=== PATIENT | female | born 1985 | race Caucasian/White ===

== ENCOUNTER 2023-11-04 14:56 | Outpatient (AMB) | payer BC, SELFPAY ==
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
[2023-11-04 15:02] VITALS: BP 118/72; PULSE 88; O2SAT 99; BMI 26.3
== END 2023-11-04 16:27 | disposition home or self-care (01) ==
PROVIDERS: PCP Nurse Practitioner; Visit Provider Nurse Practitioner Family
DX: Z04.3 Encounter for examination and observation following other accident (principal); S06.309S Unspecified focal traumatic brain injury with loss of consciousness of unspecified duration, sequela; F07.81 Postconcussional syndrome; G44.309 Post-traumatic headache, unspecified, not intractable; H53.8 Other visual disturbances
CPT/HCPCS: 99204

== ENCOUNTER → 2023-11-04 14:56 | Outpatient (BNVA) | payer BC, SELFPAY | PROVIDERS: PCP Registered Nurse; Visit Provider Nurse Practitioner Family ==

== ENCOUNTER 2023-12-14 07:42 | Outpatient (AMB) | payer BC, SELFPAY ==
--- NOTE | 2023-12-14 07:46 | A.OFFVIS_ITS ---
Intake Vital Signs 12/14/23 07:47 Height 5 ft 4 in Weight 153 lb BMI 26.3 BP 120/82 Blood Pressure Location Rt brachial Position Sitting Pulse 89 Pulse Source Pulse Oximeter Pulse Oximetry (%) 97 Oxygen Delivery Method Room Air Intake Visit Reasons: 6 Weeks f/u -Aching Headache Intake Note: Patient presents for 6 weeks follow up aching headaches. My headaches are worst since I saw her i also feel very dizzy. Allergies No Known Allergies Allergy (Verified 12/14/23 07:52) Medication List - Last Reconciled 12/14/23 by BRISEYDA Jack magnesium oxide 400 mg PO BEDTIME 30 days riboflavin (vitamin B2) 400 mg PO DAILY 30 days sumatriptan succinate 50 - 100 mg orally at onset of headache, may repeat in 2 hrs PRN; max 2 tabs per day or 4 tabs/week (may take with Ibuprofen) 30 days HPI HPI Comments History of Present Illness Details 38-yr-old female presents for f/u visit. Pt denies any significant interval medical changes. She is having more headaches- has had 6 days of headache in the past 7 days. Has been waking up with headaches. Wonders if this is r/t her neck. She can have upper neck/lower occipital- tension/pressure. Using Tylenol 2 tabs 2-3 x's per week- helps some. Did not receive Mag, B2, or Sumatriptan. She can still feel very dizzy. Still having difficulty w/ memory, word finding difficulties, losing her train of thought, and STM difficulties (in both Greek and Ukranian/Azerbaijani). Brain MRI is scheduled for tomorrow ACCOUNT SERVICES REPRESENTATIVE is scheduled to begin next week. Baseline headache characteristics: Severe, Usually left sided headache, can be right sided and Also retro-orbital, frontal, and top of head a/w Photophobia, n ausea, dizziness, brain fog, activity intolerance. Heavy lifting can exacerbate the headache. [facility] Medical History (Updated 11/04/23 @ 17:41 by BRISEYDA Jack) HX: benign breast biopsy Surgical History Hx of appendectomy H/O shoulder surgery Social History (Updated 11/04/23 @ 15:08 by RUPAL Silva) Alcohol intake: never Patient Tobacco Use Status: Never used Tobacco Physical Exam Vital Signs: Last Vital Signs Pulse 89 12/14/23 07:47 BP 120/82 12/14/23 07:47 Pulse Ox 97 12/14/23 07:47 Oxygen Delivery Method Room Air 12/14/23 07:47 BMI result Body Mass Index 26.3 Const General: cooperative and no acute distress Orientation/consciousness: patient oriented x3 Resp Effort & Inspection: normal respiratory effort and able to speak in complete sentences Neuro General: patient oriented x3 Cranial nerves: Yes CN's II-XII intact bilaterally Cognition (Neuro): normal cognition Psych Appearance: grossly normal Mental Status: mental status grossly normal Speech and movement: Normal speech and movement present Affect: normal affect Attitude: cooperative Assessment & Plan Assessment & Plan (1) Postconcussive syndrome: Code(s): F07.81 - Postconcussional syndrome (2) Posttraumatic headache: Code(s): G44.309 - Post-traumatic headache, unspecified, not intractable (3) Cognitive dysfunction: Code(s): F09 - Unspecified mental disorder due to known physiological condition (4) Blurry vision: Code(s): H53.8 - Other visual disturbances (5) Dizziness: Code(s): R42 - Dizziness and giddiness Plan Brain MRI w/wo as scheduled- to assess for any secondary etiologies of headaches, blurry vision, dizziness, such as posterior fossa processes ? For overall postconcussive management: Continue to optimize good self-care, including but not limited to maintaining a healthy diet, adequate fluid intake, adequate sleep, and engaging in regular physical activity. For headache triggers: Track headaches. Light sensitivity tips: May try blue light filtering glasses, green glasses, green light therapy. For cognitive difficulties: Start ACCOUNT SERVICES REPRESENTATIVE for postconcussive cognitive monique & tx- as scheduled. For vestibular s/s: Continue vestibular PT exercises- [facility] at [facility]. ? For acute headache treatment: Discussed importance of taking acute medications at the first sign of headache, however stressed importance of avoiding acute medication overuse (especially with combined headache medications). Will resend- Sumatriptan 100mg tab, 1/2 - 1 tab (50-100mg) at onset of headache, may repeat in 2 hours. Max of 2 tabs (200mg) per 24 hours. May adjunct with OTC Tylenol 650mg q 4 hours, Ibuprofen 600mg q 6 hours, or Naproxen 440mg q 12 hrs prn. Reviewed potential adverse effects of triptans, including but not limited to nausea, fatigue, chest tightness/tingling (usually passes within a few minutes), medication overuse headaches. Previous acute migraine medication trials: No prescribed tx's. Acute migraine medication contraindications: None ? For headache prevention medication: Start Riboflavin 400mg qam Start Magnesium 400mg qhs If ineffective after 2 weeks, start Amitriptyline 10mg at bedtime. Previous migraine prevention medication trials: None Migraine prevention medication contraindications: Certain CGRP antagonists- d/t constipation. ? ? Pt to follow-up in 2 months or sooner prn. Medications: New amitriptyline 10 mg PO BEDTIME 30 days 30 tabs 3RF Refilled riboflavin (vitamin B2) 400 mg PO DAILY 30 days 30 tabs 6RF sumatriptan succinate (0.5 - 1 x 100 mg) 50 - 100 mg orally at onset of headache, may repeat in 2 hrs PRN; max 2 tabs per day or 4 tabs/week (may take with Ibuprofen) 30 days 12 tabs 6RF migraine headache magnesium oxide may hold for loose stools 400 mg PO BEDTIME 30 days 30 tabs 6RF Coding Level of Care Code Est Pt Level 4 (90356) Diagnoses Postconcussive syndrome F07.81 Posttraumatic headache G44.309 Cognitive dysfunction F09 Blurry vision H53.8 Dizziness R42
[2023-12-14 07:47] VITALS: BP 120/82; PULSE 89; O2SAT 97; BMI 26.3
== END 2023-12-14 08:18 | disposition home or self-care (01) ==
PROVIDERS: PCP Nurse Practitioner; Visit Provider Nurse Practitioner Family
DX: G44.329 Chronic post-traumatic headache, not intractable (principal); F07.81 Postconcussional syndrome; R41.89 Other symptoms and signs involving cognitive functions and awareness; H53.8 Other visual disturbances; R42 Dizziness and giddiness
CPT/HCPCS: 99214

== ENCOUNTER → 2023-12-14 07:42 | Outpatient (BNVA) | payer BC, SELFPAY | PROVIDERS: PCP Nurse Practitioner; Visit Provider Nurse Practitioner Family ==

== ENCOUNTER 2023-12-15 08:32 | Outpatient (REF) | payer BC, SELFPAY ==
--- NOTE | ~2023-12-15 | MR_ITS ---
EXAMINATION: MR BRAIN WITH AND WITHOUT CONTRAST CLINICAL INFORMATION: Dizziness, headache, prior concussion COMPARISON: None available TECHNIQUE: MRI of the brain was obtained using routine sequences before and following administration of intravenous contrast. A total of 7 mL of Gadavist was administered intravenously. FINDINGS: There is no reduced diffusion to suggest acute infarct. Susceptibility weighted sequence is within normal limits. No mass effect, extra-axial collection, midline shift, or other herniation. No abnormal intracranial enhancement. The ventricles and sulci are normal in size and configuration. Intracranial flow voids are preserved. Trace scattered mucosal thickening in the paranasal sinuses. Trace opacification of the right mastoid tip. No focal expansile/destructive osseous lesion. MR/MR head/brain wo/w con IMPRESSION: No acute infarction, mass effect, or abnormal intracranial enhancement.
[2023-12-15] MEDS: gadobutroL 7.5 ML VIAL IVPUSH (09:22)
== END 2023-12-15 08:33 | disposition home or self-care (01) ==
LOC: HO.MRI 08:32
PROVIDERS: Visit Provider Nurse Practitioner Family
DX: R42 Dizziness and giddiness (principal); G44.309 Post-traumatic headache, unspecified, not intractable; H53.8 Other visual disturbances; F09 Unspecified mental disorder due to known physiological condition
CPT/HCPCS: 70553; A9585

== ENCOUNTER 2024-01-19 12:44 | Outpatient (RCR) | payer BC, SELFPAY ==
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
== END 2024-02-15 14:37 | disposition still patient (30) ==
LOC: HO.SH 12:44
PROVIDERS: Visit Provider Nurse Practitioner Family
DX: R41.841 Cognitive communication deficit (principal); F07.81 Postconcussional syndrome; F09 Unspecified mental disorder due to known physiological condition
CPT/HCPCS: 96125

== ENCOUNTER 2024-02-10 07:36 | Outpatient (AMB) | payer BC, SELFPAY ==
--- NOTE | 2024-02-10 07:37 | MHC.OFFVIS ---
Intake Intake Visit Reasons: 8 wks f/u-CONF Intake Note: Patient presents for 8 week follow up. still getting headaches once a week and dizziness is all the time. Allergies No Known Allergies Allergy (Verified 02/10/24 07:38) Medication List - Last Reconciled 02/10/24 by BRISEYDA Jack amitriptyline 10 mg PO BEDTIME 30 days magnesium oxide 400 mg PO BEDTIME 30 days riboflavin (vitamin B2) 400 mg PO DAILY 30 days sumatriptan succinate 50 - 100 mg orally at onset of headache, may repeat in 2 hrs PRN; max 2 tabs per day or 4 tabs/week (may take with Ibuprofen) 30 days HPI HPI Comments History of Present Illness Details 38-yr-old female presents for f/u televideo visit via [employer] Pt denies any significant interval medical changes. Although she does currently have mild URI s/s. Headaches are less often, but when they come, they are very strong. She has had 3 strong headaches in the last month, where she need to take Tylenol- which helps. She does wake up most mornings w/ more mild headache a/w brain fog- more so if she did not sleep well. She does not think the Mag and B2 was helpful. Amitriptyline caused nausea. Sumatriptan- tried twice, it was ok, but for now Tylenol is helping. She is still has episodes of dizziness with movement- but less intense. She continues to have upper cervical constant neck pain, more so on right, not radiating. When the headache is stronger, massaging her neck helps. Her PT is on hold as she had plateaued. She wonders if the headache and dizziness is coming form her neck or the blood vessels in her neck are constricted from muscle tightness. She is still having cognitive and memory difficulties. She had eval, but is waiting to hear from [facility] to do cognitive tx. 12/15/23, MR/MR head/brain wo/w con IMPRESSION: No acute infarction, mass effect, or abnormal intracranial enhancement. Baseline headache characteristics: Severe, Usually left sided headache, can be right sided and Also retro-orbital, frontal, and top of head a/w Photophobia, nausea, dizziness, brain fog, activity intolerance. Heavy lifting can exacerbate the headache. [facility] Medical History (Updated 03/21/24 @ 08:15 by BRISEYDA Jack) HX: benign breast biopsy Surgical History Hx of appendectomy H/O shoulder surgery Social History Alcohol intake: never Patient Tobacco Use Status: Never used Tobacco Physical Exam Const General: cooperative and no acute distress Orientation/consciousness: patient oriented x3 Resp Effort & Inspection: normal respiratory effort and able to speak in complete sentences Neuro General: patient oriented x3 Cognition (Neuro): normal cognition Psych Appearance: grossly normal Mental Status: mental status grossly normal Speech and movement: Normal speech and movement present Affect: normal affect Attitude: cooperative Assessment & Plan Assessment & Plan (1) Cervicalgia: Code(s): M54.2 - Cervicalgia (2) Dizziness: Code(s): R42 - Dizziness and giddiness (3) Posttraumatic headache: Code(s): G44.309 - Post-traumatic headache, unspecified, not intractable (4) Postconcussive syndrome: Code(s): F07.81 - Postconcussional syndrome (5) Cognitive dysfunction: Code(s): F09 - Unspecified mental disorder due to known physiological condition Plan Reviewed Brain MRI w/wo- normal Check C-spine XR w/ flex/ext. Pt requested cervical ultrasound- explained we should review c-spine imaging prior to considering this. ? For overall postconcussive management: Continue to optimize good self-care, including but not limited to maintaining a healthy diet, adequate fluid intake, adequate sleep, and engaging in regular physical activity. For headache triggers: Track headaches. Light sensitivity tips: May try blue light filtering glasses, green glasses, green light therapy. For cognitive difficulties: Follow-up on status of DENTAL APPLIANCE FIXER tx for postconcussive cognitive tx.. For vestibular s/s: Continue vestibular PT exercises- previously saw Ani PRAJAPATI at [facility]. ? For acute headache treatment: Tylenol 650-1000mg prn. Sumatriptan 100mg tab, 1/2 - 1 tab (50-100mg) at onset of headache, may repeat in 2 hours. Max of 2 tabs (200mg) per 24 hours. May adjunct with OTC Tylenol prn. Previous acute migraine medication trials: No prescribed tx's. Acute migraine medication contraindications: None ? For headache prevention medication: Try adding Cycloenzaprine 5-10mg qhs for cervicalgia as well. Riboflavin 400mg qam Magnesium 400mg qhs Stop Amitriptyline- caused nausea. Previous migraine prevention medication trials: Amitriptyline- caused nausea. Migraine prevention medication contraindications: Certain CGRP antagonists- d/t constipation. ? ? Pt to follow-up in 3-4 months or sooner prn. Orders: Orders XR cervical spine w flex/ext Today M54.2 - Cervicalgia, R42 - Dizziness and giddiness Medications: New cyclobenzaprine 5 - 10 mg (1 - 2 x 5 mg) PO BEDTIME PRN 60 tabs 3RF muscle spasm 30 days Discontinued amitriptyline Discontinued Reason: Doctor's Order 10 mg PO BEDTIME 30 days 30 tabs 3RF Telehealth Telehealth Location of provider rendering services: practice address Location of patient: address on file Patient Identification confirmed using: Name, : Yes Telehealth method: video Patient verbally consented to treatment: Yes Patient verbally consented to billing insurance company: Yes Patient informed of any privacy concerns related to visit: Yes Minutes spent on Phone/Video with Pt.: 21 Coding Level of Care Code Tele Est Pt Level 4 (70657) Diagnoses Cervicalgia M54.2 Dizziness R42 Posttraumatic headache G44.309 Postconcussive syndrome F07.81 Cognitive dysfunction F09
== END 2024-02-10 09:30 | disposition home or self-care (01) ==
LOC: HO.HSMS 07:36
PROVIDERS: PCP Nurse Practitioner; Visit Provider Nurse Practitioner Family
DX: M54.2 Cervicalgia (principal); G44.309 Post-traumatic headache, unspecified, not intractable; F07.81 Postconcussional syndrome; R41.89 Other symptoms and signs involving cognitive functions and awareness
CPT/HCPCS: 99214

== ENCOUNTER → 2024-02-10 07:36 | Outpatient (BNVA) | payer BC, SELFPAY | PROVIDERS: PCP Nurse Practitioner; Visit Provider Nurse Practitioner Family ==

== ENCOUNTER 2024-06-27 13:51 | Outpatient (REF) | payer BC, SELFPAY ==
--- NOTE | ~2024-06-27 | XR_ITS ---
EXAMINATION: XR CERVICAL SPINE CLINICAL INFORMATION: Dizziness and giddiness COMPARISON: None available. TECHNIQUE: 6 views of the cervical spine, inclusive of flexion and extension views, were obtained. FINDINGS: The vertebral alignment is normal. No intrinsic bony abnormality. Disc spaces are preserved. On neutral view, no listhesis. On flexion view, mild anterolisthesis C2 on C3 and C3 on C4. No significant change from neutral view with extension maneuver. On the left oblique view, positioning may affect appearance of possible C2-3 moderate, C3-4 and C4-5 moderately severe neuroforaminal narrowings. Odontoid is intact, posterior elements are aligned and no prevertebral soft tissue swelling seen. XR/XR cervical spine w flex/ext IMPRESSION: 1. Mild anterolisthesis C2 on C3 and C3 on C4 with flexion maneuver. 2. C2-3, C3-4 and C4-5 neuroforaminal narrowings not excluded on left oblique view. Electronically signed by: Abeba Nation MD 07/25/2024 10:36 AM EDT
== END 2024-06-27 13:52 | disposition home or self-care (01) ==
LOC: HO.XRAY 13:51
PROVIDERS: Visit Provider Nurse Practitioner Family
DX: M54.2 Cervicalgia (principal); R42 Dizziness and giddiness
CPT/HCPCS: 72052

== ENCOUNTER 2024-06-30 13:02 | Outpatient (AMB) | payer BC, SELFPAY ==
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
== END 2024-06-30 14:52 | disposition home or self-care (01) ==
LOC: HO.HSMS 13:02
PROVIDERS: PCP Nurse Practitioner; Visit Provider Nurse Practitioner Family
DX: G44.309 Post-traumatic headache, unspecified, not intractable (principal); F07.81 Postconcussional syndrome; F09 Unspecified mental disorder due to known physiological condition; R42 Dizziness and giddiness
CPT/HCPCS: 99214

== ENCOUNTER → 2024-06-30 13:02 | Outpatient (BNVA) | payer BC, SELFPAY | PROVIDERS: PCP Nurse Practitioner; Visit Provider Nurse Practitioner Family | DX: R42 Dizziness and giddiness (principal); M54.2 Cervicalgia; G44.309 Post-traumatic headache, unspecified, not intractable; F07.81 Postconcussional syndrome; F09 Unspecified mental disorder due to known physiological condition ==

== ENCOUNTER 2024-06-30 16:00 | Outpatient (RCR) | payer BC, SELFPAY ==
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
== END 2024-08-14 10:03 | disposition home or self-care (01) ==
LOC: HO.SH 16:00
PROVIDERS: Visit Provider Nurse Practitioner Family
DX: R41.841 Cognitive communication deficit (principal); F07.81 Postconcussional syndrome; F09 Unspecified mental disorder due to known physiological condition
CPT/HCPCS: 92507

== ENCOUNTER → 2024-10-31 20:00 | Outpatient (BNV) | payer BC, SELFPAY | PROVIDERS: PCP Nurse Practitioner; Visit Provider Radiology Diagnostic Radiology | DX: M47.892 Other spondylosis, cervical region (principal) | CPT/HCPCS: 72141 ==

== ENCOUNTER 2024-10-31 20:02 | Outpatient (REF) | payer BC, SELFPAY ==
--- NOTE | ~2024-10-31 | MR_ITS ---
EXAMINATION: MR CERVICAL SPINE WITHOUT CONTRAST CLINICAL INFORMATION: Cervicalgia COMPARISON: None available. TECHNIQUE: MRI of the cervical spine was obtained using routine sequences without contrast. FINDINGS: Submitted for interpretation on November 01, 2024. Craniocervical junction is intact. No bone marrow STIR signal abnormality. There is normal alignment. Cervical spinal cord signal is normal. C2-3: No disc herniation. No other foramina stenosis. C3-4: No disc herniation. No neuroforamina stenosis. C4-5: Broad-based disc osteophyte complex formation. No neuroforamina stenosis. C5-6: No disc herniation. No neuroforamina stenosis. C6-7: No disc herniation. No neuroforamina stenosis. C7-T1: No disc herniation. No neuroforamina stenosis. No prevertebral compartment hematoma, mass or fluid collection. Flow-void signal within the main vessels is normal. Codominant vertebral arteries. Nonspecific prominent cervical lymph nodes, bilaterally. MR/MR cervical spine wo con IMPRESSION: No acute fracture or listhesis or focal compression. No cord edema and or myelopathy. Spondylosis, C4-5. Electronically signed by: Marshall Solitario MD 11/01/2024 11:13 AM [facility]
== END 2024-10-31 20:03 | disposition home or self-care (01) ==
LOC: HO.MRI 20:02
PROVIDERS: PCP Nurse Practitioner; Visit Provider Nurse Practitioner Family
DX: M54.2 Cervicalgia (principal); R42 Dizziness and giddiness; R51.9 Headache, unspecified
CPT/HCPCS: 72141

== ENCOUNTER 2025-01-05 11:21 | Outpatient (AMB) | payer BC, SELFPAY ==
[2025-01-05 11:30] VITALS: BMI 24.5
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
--- OUTSIDE RECORDS SUMMARY | 2025-01-05 12:12 | XMS_ITS | Clinical Summary ---
Author Organization [facility] Address [address] [place] [address] Care Team Providers Care Recruiting Internship Name Role Phone Jefferson Araujo ACCESS SERVICE REPRESENTATIVE-C Primary Care Provider [phone] Source Comments PLEASE NOTE, if this patient is a minor, it may be UNLAWFUL to discuss sensitive information that is contained in these records (such as FAMILY PLANNING, MENTAL HEALTH or SUBSTANCE ABUSE) with the minor patient's parent or other person without the patient's specific authorization.[facility] Allergies Active Allergy Reactions Criticality Noted Date Comments Cats 06/18/2023 Dust 06/18/2023 Medications methocarbamoL (ROBAXIN) 750 mg tabletIndication s:Acute bilateral back pain, unspecified back location,Aching headache Take 1 Tablet by mouth 3 (three) times daily 30 Tablet 3 Active acetaminophen (TYLENOL) 500 mg tabletIndication s:Acute bilateral back pain, unspecified back location,Aching headache,Concuss ion without loss of consciousness, subsequent encounter Take 1 Tablet by mouth every 6 (six) hours as needed for pain 120 Tablet 3 Active diclofenac sodium (VOLTAREN) 1 % gelIndications:A cute bilateral back pain, unspecified back location Apply topically 2 (two) times daily as needed for pain 100 g 3 Active meclizine 25 mg chewable tabletIndication s:Dizziness,Conc ussion without loss of consciousness, subsequent encounter Place 1 Tablet into mouth, chew and swallow 3 (three) times daily as needed for nausea 30 Tablet 3 Active pantoprazole (PROTONIX) 20 mg EC tabletIndication s:Epigastric abdominal pain Take 1 Tablet by mouth every morning before breakfast 90 Tablet 1 3 Active loperamide (IMODIUM) 2 mg capsuleIndicatio ns:Irritable bowel syndrome with diarrhea Take 1 Capsule by mouth 4 (four) times daily as needed for diarrhea 90 Capsule 3 Active naproxen (NAPROSYN) 375 mg tabletIndication s:DDD (degenerative disc disease), thoracic,Aching headache Take 375 mg by mouth 2 (two) times daily 3 Active Active Problems Problem Noted Date Diagnosed Date DDD (degenerative disc disease), thoracic 2022 Chronic midline thoracic back pain 04/01/2023 Lesion of right nipple 04/01/2023 Immunization declined 01/05/2023 Chronic pain of left knee 09/08/2021 Endometriosis 09/08/2021 Thyroid nodule 09/08/2021 Fibroadenoma of right breast 09/08/2021 Chronic left shoulder pain 09/08/2021 Overview (01/08/2022): 09/10/21 Eval at [facility]. Post-operative stiffness s/p unknown surgery in [facility]. Suspects labral repair. Recommends pt obtain surgical notes and f/u. Plan to likely do physical therapy and possible steroid injection. Consider arthroscopic debridement if no improvement. S/P appendectomy 09/08/2021 Chronic gastritis 09/08/2021 Family History Medical History Relation Name Comments Cancer Maternal Grandmother leukemi a Cancer Paternal Grandmother Uterine CA Relation Name Status Comments Maternal Grandmother Alive Paternal Grandmother Alive Social History Tobacco Use Types Packs/Day Years Used Date Smoking Tobacco: Never Smokeless Tobacco: Never Tobacco Cessation:Counseling Given: Yes Alcohol Use Standard Drinks/Week Comments Never 0 (1 standard drink = 0.6 oz pur e alcohol) Social Connections Answer Date Recorded Connectedness 0 09/08/2021 Financial Resource Strain Answer Date R ecorded Financial Resource Strain 0 2020 Stress Answer Date Recorded Stress 0 09/08/2021 Physical Activity Answer Date Recorded Physical Activity 0 09/08/2021 Food Insecurity Answer Date Recorded Food 0 09/08/2021 Transportation Needs Answer Date Record ed Transportation 0 09/08/2021 Housing Stability Answer Date Recorded Housing 0 09/08/2021 Safety and Environment Answer Date Segundo rded Safety 0 08/19/2022 Utilities Answer Date Recorded Utilities 0 09/08/2021 Employment Answer Date Recorded Employment 0 09/08/2021 Comments No Sex and Gender Information Value Date Recorded Sex Assigned at Female 09/21/2021 12:39 PM PDT Legal Sex Female 8:08 AM PDT Gender Identity Female 09/21/2021 12:39 PM PDT Sexual Orientation Don't know 09/21/2021 12 :39 PM PDT Last Filed Vital Signs Vital Sign Reading Time Taken Comments Blood Pressure 100/64 04/01/2023 1:43 PM EDT Pulse 88 04/01/2023 1:43 PM EDT Temperature 36.7 ??C (98.1 ??F) 04/01/2023 1:43 PM ED T Respiratory Rate 16 04/01/2023 1:43 PM EDT Oxygen Saturation 98% 04/01/2023 1:43 PM EDT Inhaled Oxygen Concentration - - Weight 70.8 kg (156 lb) 04/01/2023 1:43 PM EDT Height 165.1 cm (5' 5 ) 04/01/2023 1:43 PM EDT Body Mass Index 25.96 04/01/2023 1:43 PM EDT Plan of Treatment Health Maintenance Due Date Last Done Comments HPV Screening 1987 Tobacco Screening 1987 Annual Preventive Care Visit 2005 Imm-DTaP/Tdap/Td (1 - Tdap) 2006 Imm-Hepatitis B (1 of 3 - 19 + 3-dose series) 2006 Relationship Safety Screening/Counseling 08/19/2023 08/19/2022 Alcohol and Drug Screen 11/22/2024 12/30/19 23, 11/20/2022, 09/08/2021 Depression Annual Screen 11/22/2024 12/30/2022 Pap Smear 12/08/2024 12/08/2021, 12/08/2021 Diabetes Screening 03/24/2026 03/24/2023, 1 , 09/25/2021, Additional history exists Hypertension Screening (#1) 03/31/2026 Cervical Cancer Screening 12/08/2026 Pap + HPV 12/08/2026 12/08/2021 (Diane bautista by Outside Provider), 12/08/2021, 12/08/2021 HIV Screening Completed 09/25/2021 Hepatitis C Screening Completed 09/25/2021 Cervical Ablation/Cold-Knife Conization Discontinued Cervical Cryotherapy Discontinued Colposcopy Discontinued Endometrial Biopsy Discontinued Excision/Leep Discontinued HPV Genotyping Discontinued [id number] Discontinued Imm-Influenza Discontinued Vaginal Pap Discontinued Vulvoscopy Discontinued Procedures Procedure Name Priority Date/Time Associated Diagnosis Comments COMPREHENSIVE METABOLIC PANEL Routine 03/24/2023 11:58 AM EDT Concussion without loss of consciousness, subsequent encounter Dizziness Memory problem PAP W/ HPV 12/08/2021 3:00 AM EST HIV 1/2 AG & AB W/RFLX (4TH GEN) Routine 09/25/2021 1:52 PM EDT Preventative health care HEPATITIS C AB W/RFLX HCV RNA, QT, RT PCR Routine 09/25/2021 1:52 PM EDT Preventative health care from Last 3 Months or Most Recently Relevant to Health Maintenance Results * COMPREHENSIVE METABOLIC PANEL (03/24/2023 11:58 AM EDT) GLUCOSE 76 65 - 99 mg/dL [facility] Comment: ?Fasting reference interval UREA NITROGEN (BUN) 9 7 - 25 mg/dL [employer] CREATININE (blood) 0.62 0.50 - 0.97 mg/dL [facility] EGFR 119 > OR = 60 mL/min/1 .73m2 [facility] Comment: The eGFR is based on the CKD-EPI 2020 equation. To calculate the new eGFR from a previous Creatinine or Cystatin C result, go to https://www.kidney.org/professionals/ kdoqi/gfr%5Fcalculator BUN/CREATININE RATIO NOT APPLICABLE 6 - 22 [employer] SODIUM 139 135 - 146 mmol/L [employer] POTASSIUM 4.6 3.5 - 5.3 mmol/L [employer] CHLORIDE 106 98 - 110 mmol/L [employer] CARBON DIOXIDE 28 20 - 32 mmol/L [employer] CALCIUM 9.1 8.6 - 10.2 mg/dL [employer] PROTEIN, TOTAL 6.8 6.1 - 8.1 g/dL [employer] [facility] ALBUMIN 4.2 3.6 - 5.1 g/dL [employer] [place] [employer] GLOBULIN 2.6 1.9 - 3.7 g/dL (calc) [employer] ALBUMIN/GLOBUL IN RATIO 1.6 1.0 - 2.5 (calc) [employer] BILIRUBIN, TOTAL 0.2 0.2 - 1.2 mg/dL [employer] [facility] ALKALINE PHOSPHATASE 59 31 - 125 U/L [employer] [facility] AST 10 10 - 30 U/L [employer] [facility] ALT 11 6 - 29 U/L [facility] Blood Blood / Unknown 03/24/2023 1 1:58 AM EDT 03/24/2023 11:58 AM EDT Narrative [facility] - 03/25/2023 7:17 AM EDT PATIENT UNABLE TO VOID; ADVISED TO RETURN FOR COLLECTION. Chanda Moreno ACCESS SERVICE REPRESENTATIVE-C LAB - BLOOD DRAW Edited Result - Final [facility] [address] [address], [employer] [address] [address] * PAP W/ HPV (12/08/2021 3:00 AM EST) 12/08/2021 3:00 AM EST Yolanda Jenkins [facility] - NO BLOOD DRAW Final Result * HEPATITIS C AB W/RFLX HCV RNA, QT, RT PCR (09/25/2021 1:52 PM EDT) HEPATITIS C ANTIBODY NON-REACT ALON NON-REACT ALON [facility] SIGNAL TO CUT-OFF 0.01 <1.00 [employer] Comment: HCV antibody was non-reactive. There is no laboratory evidence of HCV infection. In most cases, no further action is required. However, if recent HCV exposure is suspected, a test for HCV RNA (test code 41988) is suggested. For additional information please refer to http://education.Think-Now/faq/DYM44a4 (This link is being provided for informational/ educational purposes only.) Blood Blood / Unknown 09/25/2021 1 :52 PM EDT 09/25/2021 1:52 PM EDT Yolanda Martina [facility] - BLOOD DRAW Edited R esult - Final Performing Organization Address City/[facility]/ZIP Co de Phone Number [facility] [address] [address], Consult A Doctor [address],[place] [address] * HIV 1/2 AG & AB W/RFLX (4TH GEN) (09/25/2021 1:52 PM EDT) [facility] HIV AG/AB, 4TH GEN NON-REAC TIVE NON-REAC TIVE [facility] Comment: HIV-1 antigen and HIV-1/HIV-2 antibodies were not detected. There is no laboratory evidence of HIV infection. PLEASE NOTE: This information has been disclosed to you from records whose confidentiality may be protected by state law. ??If your state requires such protection, then the state law prohibits you from making any further disclosure of the information without the specific written consent of the person to whom it pertains, or as otherwise permitted by law. A general authorization for the release of medical or other information is NOT sufficient for this purpose. ?? For additional information please refer to http://education.Nanoradio.ElementsLocal/faq/WGO394 (This link is being provided for informational/ educational purposes only.) The performance of this assay has not been clinically validated in patients less than 2 years old. Blood Blood / Unknown 09/25/2021 1 :52 PM EDT 09/25/2021 1:52 PM EDT Yolanda Jenkins [facility] - BLOOD DRAW Final Re sult [facility] [address] [address], Consult A Doctor [address],[facility] [place] [address] from Last 3 Months or Most Recently Relevant to Health Maintenance Insurance AMINTA HAHN/SANJIV ROSS Member Subscriber Plan / Payer (Ef fective 2021-Present) Name:JaelArianne blackcheryl Relation to Subscriber:Self Name:Javier Flores Payer ID:[id number] Type:Indemnity Address: [facility] [id number] [place] [address] Care Teams Recruiting Internship Relationship Specialty Start Date End Date Jefferson Araujo FNP-C [address] [place] [address] PCP - General Internal Medicine 11/30/23
== END 2025-01-05 11:56 | disposition home or self-care (01) ==
PROVIDERS: PCP Nurse Practitioner; Visit Provider Physical Medicine & Rehabilitation
DX: M54.2 Cervicalgia (principal); M79.18 Myalgia, other site; R20.0 Anesthesia of skin
CPT/HCPCS: 99204

== ENCOUNTER → 2025-01-05 11:21 | Outpatient (BNVA) | payer BC, SELFPAY | PROVIDERS: PCP Nurse Practitioner; Visit Provider Physical Medicine & Rehabilitation ==

== ENCOUNTER 2025-01-12 10:55 | Outpatient (AMB) | payer BC, SELFPAY ==
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
[2025-01-12 10:53] VITALS: BMI 24.5
--- OUTSIDE RECORDS SUMMARY | 2025-01-12 11:59 | XMS_ITS | Clinical Summary ---
Author Organization [facility] Address [address] [place] [address] Care Team Providers Care Dip Filler Name Role Phone Jefferson Araujo DICE PERSON-C Primary Care Provider [phone] Source Comments PLEASE NOTE, if this patient [...] pain 09/08/2021 Overview (01/08/2022): 09/10/21 Eval at [facility]. Post-operative stiffness s/p unknown surgery in [facility]. Suspects labral repair. Recommends pt obtain surgical [...] Biopsy Discontinued Excision/Leep Discontinued HPV Genotyping Discontinued [id number] Discontinued Imm-Influenza Discontinued Vaginal Pap Discontinued Vulvoscopy [...] EDT) GLUCOSE 76 65 - 99 mg/dL [employer] [facility] Comment: ?Fasting reference interval UREA NITROGEN (BUN) 9 7 - 25 mg/dL [facility] CREATININE (blood) 0.62 0.50 - 0.97 mg/dL [employer] [facility] EGFR 119 > OR = 60 mL/min/1 .73m2 [employer] [facility] Comment: The eGFR is based on the CKD-EPI 2020 equation. To calculate the new eGFR from a previous Creatinine or Cystatin C result, go to https://www.kidney.org/professionals/ kdoqi/gfr%5Fcalculator BUN/CREATININE RATIO NOT APPLICABLE 6 - 22 [facility] SODIUM 139 135 - 146 mmol/L [facility] POTASSIUM 4.6 3.5 - 5.3 mmol/L [facility] CHLORIDE 106 98 - 110 mmol/L [facility] CARBON DIOXIDE 28 20 - 32 mmol/L [facility] CALCIUM 9.1 8.6 - 10.2 mg/dL [facility] PROTEIN, TOTAL 6.8 6.1 - 8.1 g/dL [employer] [facility] ALBUMIN 4.2 3.6 - 5.1 g/dL [employer] [place] [employer] GLOBULIN 2.6 1.9 - 3.7 g/dL (calc) [facility] ALBUMIN/GLOBUL IN RATIO 1.6 1.0 - 2.5 (calc) [facility] BILIRUBIN, TOTAL 0.2 0.2 - 1.2 mg/dL [employer] [facility] ALKALINE PHOSPHATASE 59 31 - 125 U/L [employer] [facility] AST 10 10 - 30 U/L [employer] [facility] ALT 11 6 - 29 U/L [employer] [facility] Blood Blood / Unknown 03/24/2023 1 1:58 AM EDT 03/24/2023 11:58 AM EDT Narrative [employer] [facility] - 03/25/2023 7:17 AM EDT PATIENT UNABLE TO VOID; ADVISED TO RETURN FOR COLLECTION. Chanda Moreno DICE PERSON-C LAB - BLOOD DRAW Edited Result - Final [employer] [address] [address], [employer] [address] [address] * PAP W/ HPV (12/08/2021 3:00 AM EST) 12/08/2021 3:00 AM EST Yolanda Jenkins [facility] - NO BLOOD DRAW Final Result * HEPATITIS C AB W/RFLX HCV RNA, QT, RT PCR (09/25/2021 1:52 PM EDT) HEPATITIS C ANTIBODY NON-REACT ALON NON-REACT ALON [employer] [facility] SIGNAL TO CUT-OFF 0.01 <1.00 [facility] Comment: HCV antibody was non-reactive. There is no laboratory evidence of HCV infection. In most cases, no further action is required. However, if recent HCV exposure is suspected, a test for HCV RNA (test code 98899) is suggested. For additional information please refer to http://education.BuzzTable/faq/WAO92e0 (This link is being provided for informational/ educational purposes only.) Blood Blood / Unknown 09/25/2021 1 :52 PM EDT 09/25/2021 1:52 PM EDT Yolanda Martina [facility] - BLOOD DRAW Edited R esult - Final Performing Organization Address City/[facility]/ZIP Co de Phone Number [employer] [address] [address], [employer] [address],[place] [address] * HIV 1/2 AG & AB W/RFLX (4TH GEN) (09/25/2021 1:52 PM EDT) [facility] HIV AG/AB, 4TH GEN NON-REAC TIVE NON-REAC TIVE [employer] [facility] Comment: HIV-1 antigen and HIV-1/HIV-2 antibodies [...] ?? For additional information please refer to http://education.Gamook.EasySize/faq/AEV180 (This link is being provided for informational/ educational purposes only.) The performance of this assay has not been clinically validated in patients less than 2 years old. Blood Blood / Unknown 09/25/2021 1 :52 PM EDT 09/25/2021 1:52 PM EDT Yolanda Jenkins [facility] - BLOOD DRAW Final Re sult [employer] [address] [address], [employer] [address],[facility] [place] [address] from Last 3 Months or Most Recently Relevant to Health Maintenance Insurance AMINTA HAHN/SANJIV ROSS Member Subscriber Plan / Payer (Ef fective 2021-Present) Name:JaelArianne blackcheryl Relation to Subscriber:Self Name:Javier Flores Payer ID:[id number] Type:Indemnity Address: [facility] [id number] [place] [address] Care Teams Dip Filler Relationship Specialty Start Date End Date Jefferson Araujo FNP-C [address] [place] [address] PCP - General Internal Medicine 11/30/23
== END 2025-01-12 15:21 | disposition home or self-care (01) ==
PROVIDERS: PCP Nurse Practitioner; Visit Provider Nurse Practitioner Family
DX: R42 Dizziness and giddiness (principal); F07.81 Postconcussional syndrome; F09 Unspecified mental disorder due to known physiological condition; G44.309 Post-traumatic headache, unspecified, not intractable; M54.2 Cervicalgia
CPT/HCPCS: 99214

== ENCOUNTER → 2025-01-12 10:55 | Outpatient (BNVA) | payer BC, SELFPAY | PROVIDERS: PCP Nurse Practitioner; Visit Provider Nurse Practitioner Family ==

== ENCOUNTER 2025-01-31 08:37 | Outpatient (REF) | payer BC, SELFPAY ==
--- NOTE | 2025-01-31 08:41 | EMG_ITS ---
Chief complaint: Left hand/arm paresthesias Reason for referral: Evaluate for Carpal Tunnel Syndrome Procedure done: Left upper extremity NCS/EMG Precautions and/or limitations: None The limb temperature was monitored continuously and remained between 32-36 degrees C during the performance of the NCS. Nerve Conduction Studies Anti Sensory Summary Table ?Stim Site NR Onset (ms) Norm Onset (ms) Peak (ms) Norm Peak (ms) O-P Amp (?V) Norm O-P Amp Site1 Site2 Delta-0 (ms) Dist (cm) Brad (m/s) Norm Brad (m/s) Left Median Anti Sensory (2nd Digit) Wrist ? 2.3 3.0 <3.6 60.3 >10 Wrist 2nd Digit 2.3 14.0 61 Left Radial Anti Sensory (Thumb) Forearm ? 1.7 2.2 <3.1 30.8 Forearm Thumb 1.7 0.0 Left Ulnar Anti Sensory (5th Digit) Wrist ? 2.2 2.9 <3.7 41.3 >15.0 Wrist 5th Digit 2.2 14.0 64 Motor Summary Table ?Stim Site NR Onset (ms) Norm Onset (ms) O-P Amp (mV) Norm O-P Amp iAmp (mV) Amp (1st) (%) Site1 Site2 Delta-0 (ms) Dist (cm) Brad (m/s) Norm Brad (m/s) Left Median Motor (Abd Poll Brev) Wrist ? 3.0 <3.9 11.5 >4.5 13.5 100.0 Elbow Wrist 3.4 18.0 53 >45 Elbow ? 6.4 11.8 14.0 102.6 Left Ulnar Motor (Abd Dig Minimi) Wrist ? 2.4 <3.0 9.0 >5 11.5 100.0 B Elbow Wrist 2.9 17.0 59 >45 B Elbow ? 5.3 9.1 11.5 101.1 A Elbow B Elbow 1.5 10.0 67 >45 A Elbow ? 6.8 8.9 11.3 98.9 EMG ?Side Muscle Nerve Root Ins Act Fibs Psw Amp Dur Poly Recrt Int Pat Comment Left 1stDorInt Ulnar C8-T1 Nml Nml Nml Nml Nml 0 Nml Complete Left FlexCarRad Median C6-7 Nml Nml Nml Nml Nml 0 Nml Complete Left Biceps Musculocut C5-6 Nml Nml Nml Nml Nml 0 Nml Complete Left Triceps Radial C6-7-8 Nml Nml Nml Nml Nml 0 Nml Complete Left Deltoid Axillary C5-6 Nml Nml Nml Nml Nml 0 Nml Complete FINDINGS: All motor and sensory nerves tested showed normal latencies, amplitudes and conduction velocities. Concentric needle EMG was performed in selected muscles of the left upper extremity. Study did not reveal signs of electric abnormalities as shown in the table above. IMPRESSION: 1. This is a normal study. 2. There is no electrodiagnostic evidence for median neuropathy, ulnar neuropathy, brachial plexopathy, or cervical radiculopathy. CLINICAL COMMENT: Continue PT for myofascial pain. Thank you for your kind referral. Maria Guadalupe García MD, WICHO Board Certified, [place] Board of Physical Medicine and Rehabilitation (ABPMR) Board Certified, [place] Board of Electrodiagnostic Medicine (ABEM) CODIN [id number] MTDD
--- OUTSIDE RECORDS SUMMARY | 2025-01-31 09:09 | XMS_ITS | Clinical Summary ---
Author Organization [facility] Address [address] [place] [address] Care Team Providers Care Janitorial Manager Name Role Phone Jefferson Araujo ENVIRONMENTAL MARKETING REPRESENTATIVE-C Primary Care Provider [phone] Source Comments PLEASE NOTE, if this patient [...] pain 09/08/2021 Overview (01/08/2022): 09/10/21 Eval at [facility]. Post-operative stiffness s/p unknown surgery in [facility]. Suspects labral repair. Recommends pt obtain surgical [...] Biopsy Discontinued Excision/Leep Discontinued HPV Genotyping Discontinued [id number] Discontinued Imm-Influenza Discontinued Vaginal Pap Discontinued Vulvoscopy [...] EDT) GLUCOSE 76 65 - 99 mg/dL [employer] [facility] Comment: ?Fasting reference interval UREA NITROGEN (BUN) 9 7 - 25 mg/dL [employer] CREATININE (blood) 0.62 0.50 - 0.97 mg/dL [employer] [facility] EGFR 119 > OR = 60 mL/min/1 .73m2 [employer] [facility] Comment: The eGFR is based on the CKD-EPI 2020 equation. To calculate the new eGFR from a previous Creatinine or Cystatin C result, go to https://www.kidney.org/professionals/ kdoqi/gfr%5Fcalculator BUN/CREATININE RATIO NOT APPLICABLE 6 - 22 [employer] SODIUM 139 135 - 146 mmol/L [employer] POTASSIUM 4.6 3.5 - 5.3 mmol/L [employer] CHLORIDE 106 98 - 110 mmol/L [employer] CARBON DIOXIDE 28 20 - 32 mmol/L [employer] CALCIUM 9.1 8.6 - 10.2 mg/dL [employer] PROTEIN, TOTAL 6.8 6.1 - 8.1 g/dL [employer] [facility] ALBUMIN 4.2 3.6 - 5.1 g/dL [employer] [place] [employer] GLOBULIN 2.6 1.9 - 3.7 g/dL (calc) [employer] ALBUMIN/GLOBUL IN RATIO 1.6 1.0 - 2.5 (calc) [employer] BILIRUBIN, TOTAL 0.2 0.2 - 1.2 mg/dL [employer] [facility] ALKALINE PHOSPHATASE 59 31 - 125 U/L [employer] [facility] AST 10 10 - 30 U/L [employer] [facility] ALT 11 6 - 29 U/L [employer] [facility] Blood Blood / Unknown 03/24/2023 1 1:58 AM EDT 03/24/2023 11:58 AM EDT Narrative [employer] [facility] - 03/25/2023 7:17 AM EDT PATIENT UNABLE TO VOID; ADVISED TO RETURN FOR COLLECTION. Chanda Moreno ENVIRONMENTAL MARKETING REPRESENTATIVE-C LAB - BLOOD DRAW Edited Result - Final [employer] [address] [address], [employer] [address] [address] * PAP W/ HPV (12/08/2021 3:00 AM EST) 12/08/2021 3:00 AM EST Yolanda Jenkins [facility] - NO BLOOD DRAW Final Result * HEPATITIS C AB W/RFLX HCV RNA, QT, RT PCR (09/25/2021 1:52 PM EDT) HEPATITIS C ANTIBODY NON-REACT ALON NON-REACT ALON [employer] [facility] SIGNAL TO CUT-OFF 0.01 <1.00 [employer] Comment: HCV antibody was non-reactive. There is no laboratory evidence of HCV infection. In most cases, no further action is required. However, if recent HCV exposure is suspected, a test for HCV RNA (test code 28126) is suggested. For additional information please refer to http://education.ArborMetrix/faq/AJS88j6 (This link is being provided for informational/ educational purposes only.) Blood Blood / Unknown 09/25/2021 1 :52 PM EDT 09/25/2021 1:52 PM EDT Yolanda Martina [facility] - BLOOD DRAW Edited R esult - Final Performing Organization Address City/[facility]/ZIP Co de Phone Number [employer] [address] [address], [employer] [address],[place] [address] * HIV 1/2 AG & AB W/RFLX (4TH GEN) (09/25/2021 1:52 PM EDT) [facility] HIV AG/AB, 4TH GEN NON-REAC TIVE NON-REAC TIVE [employer] [facility] Comment: HIV-1 antigen and HIV-1/HIV-2 antibodies were [...] ?? For additional information please refer to http://education.MentorDOTMe.Ask Ziggy/faq/BUA763 (This link is being provided for informational/ educational purposes only.) The performance of this assay has not been clinically validated in patients less than 2 years old. Blood Blood / Unknown 09/25/2021 1 :52 PM EDT 09/25/2021 1:52 PM EDT Yolanda Jenkins [facility] - BLOOD DRAW Final Re sult [employer] [address] [address], [employer] [address],[facility] [place] [address] from Last 3 Months or Most Recently Relevant to Health Maintenance Insurance AMINTA [employer]HN/SANJIV ROSS Member Subscriber Plan / Payer (Ef fective 2021-Present) Name:JaelArianne blackcheryl Relation to Subscriber:Self Name:Javier Flores Payer ID:[id number] Type:Indemnity Address: [facility] [id number] [place] [address] Care Teams Janitorial Manager Relationship Specialty Start Date End Date Jefferson Araujo FNP-C [address] [place] [address] PCP - General Internal Medicine 11/30/23
== END 2025-01-31 08:38 | disposition home or self-care (01) ==
LOC: HO.NEURO 08:37
PROVIDERS: PCP Nurse Practitioner; Visit Provider Physical Medicine & Rehabilitation
DX: R20.0 Anesthesia of skin (principal); M79.18 Myalgia, other site
CPT/HCPCS: 95886; 95909

== ENCOUNTER → 2025-01-31 08:41 | Outpatient (BNV) | payer BC, SELFPAY | PROVIDERS: PCP Nurse Practitioner; Visit Provider Physical Medicine & Rehabilitation | DX: R20.2 Paresthesia of skin (principal); M79.642 Pain in left hand; M79.602 Pain in left arm | CPT/HCPCS: 95886; 95909 ==

== ENCOUNTER 2025-05-17 12:09 | Outpatient (AMB) | payer BC, SELFPAY ==
[2025-05-17 12:12] VITALS: BMI 24.5
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
--- OUTSIDE RECORDS SUMMARY | 2025-05-17 14:30 | XMS_ITS | Clinical Summary ---
Author Organization [facility] Address [address] [place] [address] Care Team Providers Care Blasting Entryman Name Role Phone Jefferson Araujo LINEN ROOM CUSTODIAN-C Primary Care Provider [phone] Source Comments PLEASE NOTE, if this patient [...] pain 09/08/2021 Overview (01/08/2022): 09/10/21 Eval at [facility]. Post-operative stiffness s/p unknown surgery in [facility]. Suspects labral repair. Recommends pt obtain [...] 88 04/01/2023 1:43 PM EDT Temperature 36.7 C (98.1 F) 04/01/2023 1:43 PM EDT Respiratory Rate 16 04/01/2023 1:43 PM EDT Oxygen Saturation 98% 04/01/2023 1:43 PM EDT Inhaled Oxygen Concentration - - Weight 70.8 kg (156 lb) 04/01/2023 1:43 PM EDT Height 165.1 cm (5' 5 ) 04/01/2023 1:43 PM EDT Body Mass Index 25.96 04/01/2023 1:43 PM EDT Plan of Treatment Health Maintenance Due Date Last Done Comments Anxiety Screening 1987 HPV Screening 1987 Tobacco Screening 1987 Imm-DTaP/Tdap/Td (1 - Tdap) 2006 Imm-Hepatitis B [...] Biopsy Discontinued Excision/Leep Discontinued HPV Genotyping Discontinued [id number] Discontinued Imm-Influenza Discontinued Vaginal Pap Discontinued Vulvoscopy [...] EDT) GLUCOSE 76 65 - 99 mg/dL [facility] Comment: Fasting reference interval UREA NITROGEN (BUN) 9 7 - 25 mg/dL [facility] CREATININE (blood) 0.62 0.50 - 0.97 mg/dL [facility] EGFR 119 > OR = 60 mL/min/1 .73m2 [facility] Comment: The eGFR is based on the CKD-EPI 2020 equation. To calculate the new eGFR from a previous Creatinine or Cystatin C result, go to https://www.kidney.org/professionals/ kdoqi/gfr%5Fcalculator BUN/CREATININE RATIO NOT APPLICABLE 6 - 22 [facility] SODIUM 139 135 - 146 mmol/L [facility] POTASSIUM 4.6 3.5 - 5.3 mmol/L [facility] CHLORIDE 106 98 - 110 mmol/L [facility] CARBON DIOXIDE 28 20 - 32 mmol/L [facility] CALCIUM 9.1 8.6 - 10.2 mg/dL [facility] PROTEIN, TOTAL 6.8 6.1 - 8.1 g/dL [facility] ALBUMIN 4.2 3.6 - 5.1 g/dL [facility] GLOBULIN 2.6 1.9 - 3.7 g/dL (calc) [facility] ALBUMIN/GLOBUL IN RATIO 1.6 1.0 - 2.5 (calc) [facility] [employer] BILIRUBIN, TOTAL 0.2 0.2 - 1.2 mg/dL [facility] ALKALINE PHOSPHATASE 59 31 - 125 U/L [facility] AST 10 10 - 30 U/L [facility] ALT 11 6 - 29 U/L [facility] Blood Blood / Unknown 03/24/2023 1 1:58 AM EDT 03/24/2023 11:58 AM EDT Narrative [facility] - 03/25/2023 7:17 AM EDT PATIENT UNABLE TO VOID; ADVISED TO RETURN FOR COLLECTION. Chanda Moreno LINEN ROOM CUSTODIAN-C LAB - BLOOD DRAW Edited Result - Final [facility] [address] [address], [facility] [address] [address] * PAP W/ HPV (12/08/2021 3:00 AM EST) 12/08/2021 3:00 AM EST Yolanda Jenkins [facility] LAB - PATHOLOGY AND CYTOL OGY AMBULATORY Final Result * HEPATITIS C AB W/RFLX HCV RNA, QT, RT PCR (09/25/2021 1:52 PM EDT) HEPATITIS C ANTIBODY NON-REACT ALON NON-REACT ALON [facility] SIGNAL TO CUT-OFF 0.01 <1.00 [facility] Comment: HCV antibody was non-reactive. There is no laboratory evidence of HCV infection. In most cases, no further action is required. However, if recent HCV exposure is suspected, a test for HCV RNA (test code 48872) is suggested. For additional information please refer to http://education.PacketHop/faq/YGE98y3 (This link is being provided for informational/ educational purposes only.) Blood Blood / Unknown 09/25/2021 1 :52 PM EDT 09/25/2021 1:52 PM EDT Yolanda Morenoinda [facility] LAB - BLOOD DRAW Edited R esult - Final Performing Organization Address City/[facility]/ZIP Co de Phone Number [facility] [address] [address], [employer] [address] [address] * HIV 1/2 AG & AB W/RFLX (4TH GEN) (09/25/2021 1:52 PM EDT) [facility] HIV AG/AB, 4TH GEN NON-REAC TIVE NON-REAC TIVE [facility] Comment: HIV-1 antigen and HIV-1/HIV-2 antibodies were not detected. There is no laboratory evidence of HIV infection. PLEASE NOTE: This information has been disclosed to you from records whose confidentiality may be protected by state law. If your state requires such protection, then the state law prohibits you from making any further disclosure of the information without the specific written consent of the person to whom it pertains, or as otherwise permitted by law. A general authorization for the release of medical or other information is NOT sufficient for this purpose. For additional information please refer to http://education.Youtego.MyDeals.com/faq/TWA303 (This link is being provided for informational/ educational purposes only.) The performance of this assay has not been clinically validated in patients less than 2 years old. Blood Blood / Unknown 09/25/2021 1 :52 PM EDT 09/25/2021 1:52 PM EDT Yolanda Jenkins [facility] LAB - BLOOD DRAW Final Re sult [employer] [address] [address], [employer] [address] [address] from Last 3 Months or Most Recently Relevant to Health Maintenance Insurance AMINTA HAHN/SANJIV ROSS Care Teams Blasting Entryman Relationship Specialty Start Date End Date Jefferson Araujo FNP-C [facility] [place] [address] PCP - General Internal Medicine 11/30/23
== END 2025-05-17 12:29 | disposition home or self-care (01) ==
LOC: HO.HOS 12:10
PROVIDERS: PCP Nurse Practitioner; Visit Provider Physical Medicine & Rehabilitation
DX: M79.18 Myalgia, other site (principal)
CPT/HCPCS: 99213

== ENCOUNTER → 2025-05-17 12:09 | Outpatient (BNVA) | payer BC, SELFPAY | PROVIDERS: PCP Nurse Practitioner; Visit Provider Physical Medicine & Rehabilitation | DX: Z13.89 Encounter for screening for other disorder (principal) ==

== ENCOUNTER 2025-08-28 11:31 | Outpatient (AMB) | payer BC, SELFPAY ==
[2025-08-28 11:23] VITALS: BP 100/60; PULSE 72; O2SAT 98; BMI 23.8
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
--- OUTSIDE RECORDS SUMMARY | 2025-08-28 14:35 | XMS_ITS | Clinical Summary ---
Author Organization [facility] Address [address] [place] [address] Care Team Providers Care Occupational Health Professional Name Role Phone Jefferson Araujo SCENARIO WRITER-C Primary Care Provider [phone] Source Comments PLEASE NOTE, if this patient [...] pain 09/08/2021 Overview (01/08/2022): 09/10/21 Eval at [facility]. Post-operative stiffness s/p unknown surgery in [facility]. Suspects labral repair. Recommends pt obtain surgical [...] 3 - 19 + 3-dose series) 2006 Imm-HPV (1 - 3-dose SCDM series) 2014 Relationship Safety Screening/Counseling 08/19/2023 08/19/2022 Alcohol and [...] Biopsy Discontinued Excision/Leep Discontinued HPV Genotyping Discontinued [id number] Discontinued Imm-Influenza Discontinued Vaginal Pap Discontinued Vulvoscopy [...] EDT) GLUCOSE 76 65 - 99 mg/dL [facility] Comment: Fasting reference interval UREA NITROGEN (BUN) 9 7 - 25 mg/dL [facility] CREATININE (blood) 0.62 0.50 - 0.97 mg/dL [facility] EGFR 119 > OR = 60 mL/min/1 .73m2 [facility] Comment: The eGFR is based on the CKD-EPI 2020 equation. To calculate the new eGFR from a previous Creatinine or Cystatin C result, go to https://www.kidney.org/professionals/ kdoqi/gfr%5Fcalculator BUN/CREATININE RATIO NOT APPLICABLE 6 - 22 [facility] SODIUM 139 135 - 146 mmol/L [facility] POTASSIUM 4.6 3.5 - 5.3 mmol/L [facility] CHLORIDE 106 98 - 110 mmol/L [facility] CARBON DIOXIDE 28 20 - 32 mmol/L [facility] CALCIUM 9.1 8.6 - 10.2 mg/dL [facility] PROTEIN, TOTAL 6.8 6.1 - 8.1 g/dL [facility] ALBUMIN 4.2 3.6 - 5.1 g/dL [facility] GLOBULIN 2.6 1.9 - 3.7 g/dL (calc) [facility] ALBUMIN/GLOBUL IN RATIO 1.6 1.0 - 2.5 (calc) [facility] [place] [employer] BILIRUBIN, TOTAL 0.2 0.2 - 1.2 mg/dL [facility] ALKALINE PHOSPHATASE 59 31 - 125 U/L [facility] AST 10 10 - 30 U/L [facility] ALT 11 6 - 29 U/L [facility] Blood Blood / Unknown 03/24/2023 1 1:58 AM EDT 03/24/2023 11:58 AM EDT Narrative [facility] - 03/25/2023 7:17 AM EDT PATIENT UNABLE TO VOID; ADVISED TO RETURN FOR COLLECTION. Chanda Moreno SCENARIO WRITER-C LAB - BLOOD DRAW Edited Result - Final [facility] [address] [address], [facility] [address] [address] * PAP W/ HPV (12/08/2021 3:00 AM EST) 12/08/2021 3:00 AM EST [facility] LAB - PATHOLOGY AND CYTOL OGY AMBULATORY Final Result * HEPATITIS C AB W/RFLX HCV RNA, QT, RT PCR (09/25/2021 1:52 PM EDT) HEPATITIS C ANTIBODY NON-REACT ALON NON-REACT ALON [facility] SIGNAL TO CUT-OFF 0.01 <1.00 [facility] Comment: HCV antibody was non-reactive. There is no laboratory evidence of HCV infection. In most cases, no further action is required. However, if recent HCV exposure is suspected, a test for HCV RNA (test code 77493) is suggested. For additional information please refer to http://education.[employer]com/faq/IAU47l2 (This link is being provided for informational/ educational purposes only.) Blood Blood / Unknown 09/25/2021 1 :52 PM EDT 09/25/2021 1:52 PM EDT Yolanda [facility] LAB - BLOOD DRAW Edited R esult - Final Performing Organization Address [facility]/ZIP Co de Phone Number [facility] [address] [address], [facility] [address],[place] [address] * HIV 1/2 AG & AB W/RFLX (4TH GEN) (09/25/2021 1:52 PM EDT) [facility] HIV AG/AB, 4TH GEN NON-REAC TIVE NON-REAC TIVE [facility] Comment: HIV-1 antigen and HIV-1/HIV-2 antibodies [...] purpose. For additional information please refer to http://education.[employer]cube World/faq/IVP679 (This link is being provided for informational/ educational purposes only.) The performance of this assay has not been clinically validated in patients less than 2 years old. Blood Blood / Unknown 09/25/2021 1 :52 PM EDT 09/25/2021 1:52 PM EDT [facility]olanda Morenoinda [facility] LAB - BLOOD DRAW Final Re sult Performing Organization Address [facility]/ZIP Co de Phone Number [facility] [address] [address], [facility] [address],[place] [address] from Last 3 Months or Most Recently Relevant to Health Maintenance Insurance [employer]IN[employer]HN/SANJIV [employer] Care Teams Occupational Health Professional Relationship Specialty Start Date End Date Jefferson Araujo FNP-C [address] [place] [address] PCP - General Internal Medicine 11/30/23
== END 2025-08-28 12:24 | disposition home or self-care (01) ==
LOC: HO.HSMS 11:32
PROVIDERS: PCP Nurse Practitioner; Visit Provider Nurse Practitioner Family
DX: G44.329 Chronic post-traumatic headache, not intractable (principal); F07.81 Postconcussional syndrome; R42 Dizziness and giddiness; M54.2 Cervicalgia
CPT/HCPCS: 99214